=== PATIENT | female | born 1995 | race Caucasian/White ===

== ENCOUNTER 2019-03-29 06:32 | Inpatient (IN) | payer OTHER ==
[~2019-03-29] VITALS: Ht 157.5 cm; Wt 58.5 kg
[2019-03-29] VITALS (17 sets, daily range): BP systolic 41–108; BP diastolic 22–90
[2019-03-29] MEDS ORDERED: ACETAMINOPHEN 325MG TABLET PO STA (06:51)
[2019-03-29] MEDS ORDERED: PIPERACILLIN/TAZ 3.375G PREMIX 50 ML IV ONE (07:00)
[2019-03-29] MEDS ORDERED: SODIUM CHLORIDE 0.9% 1000ML BAG (SEPSIS BOLUS) IV ONE (07:00)
[2019-03-29] MEDS ORDERED: VANCOMYCIN 1 G PREMIX 200 ML IV ONE (07:00)
[2019-03-29] MEDS ORDERED: ACETAMINOPHEN 650MG SUPP PR ONE (07:15)
[2019-03-29] MEDS ORDERED: ONDANSETRON HCL 4MG/2ML INJ IV ONE (07:15)
[2019-03-29 07:38] LABS: MEAN CORPUSCULAR VOLUME 94.7 fL (81.0-99.0); MEAN PLATELET VOLUME 9.9 fl (7.4-10.4); RED BLOOD CELL COUNT 1.94 mill/uL (4.2-5.4); RED CELL DISTRIBUTION WIDTH 18.5 % (11.6-14.6)
[2019-03-29 07:43] LABS: CHLORIDE 98 mEq/L (98-107)
[2019-03-29 07:46] LABS: HEMATOCRIT. 18.4 % (36.0-48.0); HEMOGLOBIN. 6.2 g/dL (12.0-16.0); PLATELET 8 x1000/uL (130-400)
[2019-03-29 07:47] LABS: ETHANOL BLOOD < 10 mg/dL
[2019-03-29 07:53] LABS: HCG SCREEN NEGATIVE
[2019-03-29] MEDS ORDERED: DEXTROSE 50% WATER 50ML SYRINGE IV ONE ×3 (08:00→11:43)
[2019-03-29 08:23] LABS: INR 1.3; PROTHROMBIN TIME 13.3 sec (9.6-11.0)
[2019-03-29 08:24] LABS: CLARITY URINE TURBID (CLEAR); COLOR URINE DARK YELLOW (YELLOW); KETONES URINE NEGATIVE (NEGATIVE); LEUKOCYTE ESTERASE URINE 1+ (NEGATIVE); NITRITE URINE POSITIVE (NEGATIVE); OCCULT BLOOD URINE NEGATIVE (NEGATIVE); PROTEIN URINE TRACE (NEGATIVE); SPECIFIC GRAVITY URINE 1.021 (1.005-1.030)
[2019-03-29 08:36] LABS: PLATELET ESTIMATE MARKEDLY DECREASED
[2019-03-29 08:40] LABS: *AMPHETAMINES SCREEN URINE NEGATIVE (NEGATIVE); *BARBITURATES SCREEN URINE NEGATIVE (NEGATIVE); *BENZODIAZEPINES SCREEN URINE NEGATIVE (NEGATIVE); *COCAINE SCREEN URINE NEGATIVE (NEGATIVE); METHADONE URINE SCREEN NEGATIVE (NEGATIVE); OPIATES URINE SCREEN NEGATIVE (NEGATIVE)
[2019-03-29 08:41] LABS: CANNABINOID URINE SCREEN NEGATIVE (NEGATIVE); PHENCYCLIDINE URINE SCREEN NEGATIVE (NEGATIVE)
[2019-03-29] MEDS ORDERED: LIDOCAINE HCL 1% 20ML VIAL (Pyxis) INJ ONE (09:12)
[2019-03-29] MEDS ORDERED: SODIUM CHLORIDE 0.9% 1,000 ML IV ONE (09:12)
[2019-03-29] MEDS ORDERED: NOREPINEPHRINE 4 MG in DEXT 5% WATER 246 ML IV ONE (09:15)
[2019-03-29] MEDS ORDERED: NOREPINEPHRINE 4MG/250ML PMX 250 ML IV ONE (09:35)
[2019-03-29] MEDS ORDERED: PHENYLEPHRINE 20 MG in DEXT 5% WATER 498 ML IV PRN (12:00)
[2019-03-29] MEDS ORDERED: NOREPINEPHRINE 16 MG in DEXT 5% WATER 484 ML IV PRN (12:00)
[2019-03-29] MEDS ORDERED: DEXT 5%/0.45% NACL 1000ML 1,000 ML IV SCH (12:06)
[2019-03-29 12:10] LABS: BG BASE EXCESS -22.2 mmol/L (-2.0-2.0); BG CARBOXYHEMOGLOBIN 1.1 % (0.5-1.5); BG FRACTION INSPIRED OXYGEN 32; BG HCO3 ACT 6.8 mmol/L (22.0-26.0); BG METHEMOGLOBIN 0.2 % (0.0-1.5); BG OXYGEN SATURATION 76.7 % (92.0-98.5); BG OXYHEMOGLOBIN 75.7 % (94.0-97.0); BG PH 7.034 (7.350-7.450); BG PO2 54.6 mmHg (75.0-100.0); BG SAMPLE SITE RIGHT RADIAL; BG TOTAL HEMOGLOBIN 8.2 g/dL (12.0-18.0); BG VENT MODE NASAL CANNULA
[2019-03-29] MEDS ORDERED: ONDANSETRON HCL 4MG/2ML INJ IV PRN (12:15)
[2019-03-29] MEDS ORDERED: IPRATROPIUM/ALBUTEROL 0.5-3(2.5)MG/3ML NEB INH PRN (12:15)
[2019-03-29] MEDS ORDERED: SODIUM BICARBONATE 8.4% 1 MEQ/ML 50ML SYR IV SCH (12:15)
[2019-03-29] MEDS ORDERED: ACETAMINOPHEN 650MG SUPP PR PRN (12:15)
[2019-03-29] MEDS ORDERED: VANCOMYCIN 1 G PREMIX 200 ML IV SCH (12:15)
[2019-03-29] MEDS ORDERED: PIPERACILLIN/TAZ 2.25G PREMIX 50 ML IV SCH (18:00)
[2019-03-29] MEDS ORDERED: CALCIUM CHLORIDE 1GM/10ML SYR IV ONE (18:41)
[2019-03-29] MEDS ORDERED: EPINEPHRINE 0.1MG/ML (1:10,000) 10ML SYR ONE ×2 (18:41→18:51)
[2019-03-29] MEDS ORDERED: SODIUM BICARBONATE 8.4% MEQ/ML 50ML VIAL IV ONE (18:41)
== END 2019-03-29 12:42 | disposition expired | DRG 871 ==
LOC: ER 06:32 → EDBEDREQ 08:33 → EDBEDREQSVC 08:33 → ENRESERV 08:51 → MICUNO 11:35
PROVIDERS: ADMIT Internal Medicine; ATTEND Internal Medicine
PROC: 02HV33Z Insertion of Infusion Device into Superior Vena Cava, Percutaneous Approach (ICD-10-PCS; principal; 2019-03-29)
PROC: B548ZZA Ultrasonography of Superior Vena Cava, Guidance (ICD-10-PCS; 2019-03-29)
PROC: B5181ZA Fluoroscopy of Superior Vena Cava using Low Osmolar Contrast, Guidance (ICD-10-PCS; 2019-03-29)
PROC: 0BH17EZ Insertion of Endotracheal Airway into Trachea, Via Natural or Artificial Opening (ICD-10-PCS; 2019-03-29)
PROC: 5A12012 Performance of Cardiac Output, Single, Manual (ICD-10-PCS; 2019-03-29)
DX: A41.9 Sepsis, unspecified organism (principal); J18.1 Lobar pneumonia, unspecified organism; J96.90 Respiratory failure, unspecified, unspecified whether with hypoxia or hypercapnia; R65.21 Severe sepsis with septic shock; D61.818 Other pancytopenia; I47.1 Supraventricular tachycardia; N39.0 Urinary tract infection, site not specified; C95.00 Acute leukemia of unspecified cell type not having achieved remission; E16.2 Hypoglycemia, unspecified; R04.0 Epistaxis; I46.9 Cardiac arrest, cause unspecified; W06.XXXA Fall from bed, initial encounter; Y93.89 Activity, other specified; Y92.89 Other specified places as the place of occurrence of the external cause; Z79.899 Other long term (current) drug therapy; Y99.8 Other external cause status
CPT/HCPCS: 31500; 36415; 36573; 36600; 71045; 80305; 80320; 82375; 82805; 82962; 83605; 83880; 84145; 84484; 84703; 86850; 86900; 86920; 87077; 87186; 92950; 93005; 96374; 96375; 99291; C1725; J2370; J2405; J2543; J3370; J3490; J7030; J7050; J7060; P9016; P9034; G0480